=== PATIENT | female | born 1975 | race Caucasian/White ===

== ENCOUNTER → 2017-05-10 | Outpatient (CLI) | payer BC ==
[~2017-05-10] MED LIST: PORTTAB PO
--- NOTE | 2017-05-10 13:42 | REPMRS ---
Patient History The patient states she had a clinical breast exam in 04/2017. No known family history of cancer. Taking hormonal contraceptives for 11 years. Digital Woman Screen Mammo: May 10, 2017 - Exam #: [id number] Bilateral CC and MLO view(s) were taken. Technologist: Jeimy Connell, Technologist Prior study comparison: March 10, 2016, digital woman screen mammo performed at [facility]. FINDINGS: There are scattered fibroglandular densities. There has been no change in the appearance of the mammogram from the prior studies. There is a mild amount of scattered fibroglandular density which is fairly symmetric. There is no interval development of dominant mass, architectural distortion, or clustered microcalcification suggestive of malignancy. ASSESSMENT: BI-RADS/ACR category 1 mammogram. Negative. Recommendation Routine screening mammogram in 1 year (for women over age 40). This mammogram was interpreted with the aid of an FDA-approved computer-aided dectection system. Electronically Signed By: Handy Easley MD 05/10/17 [id number]
== END ==
LOC: M WHC 10:28
PROVIDERS: ATTEND Nurse Practitioner Family
DX: Z12.31 Encounter for screening mammogram for malignant neoplasm of breast (principal)

== ENCOUNTER → 2017-05-10 | Outpatient (REF) | payer BC | LOC: M SFHCWAGY 11:17 | PROVIDERS: ATTEND Nurse Practitioner Family | DX: Z12.4 Encounter for screening for malignant neoplasm of cervix (principal) ==

== ENCOUNTER → 2017-05-29 | Outpatient (CLI) | payer BC, MEDICARE ==
--- NOTE | 2017-05-29 11:41 | REP ---
PELVIC ULTRASOUND: Real-time sonographic evaluation of the pelvis is performed utilizing transabdominal and endovaginal technique. The urinary bladder measures 7.2 x 9.2 x 4.1 cm. The uterus measures 10.3 x 4.5 x 4.5 cm. Endometrial thickness is 4 mm. There is no endometrial fluid collection. The ovaries appear normal in size and echotexture, right ovary measuring 2.2 x 0.7 x 2.8 cm and left ovary 1.9 x 0.6 x 1.5 cm. There is adnexal mass. There is no evidence of ovarian torsion, with blood flow seen in each ovary with duplex Doppler evaluation, RI right ovary 0.58 and left ovary 0.50. Small amount of free fluid may be physiologic in nature. IMPRESSION: Essentially negative pelvic ultrasound.
== END ==
LOC: M WHC 08:58
PROVIDERS: ATTEND Nurse Practitioner Family
DX: R10.32 Left lower quadrant pain (principal)

== ENCOUNTER → 2018-08-16 | Outpatient (CLI) | payer OTHER ==
--- NOTE | 2018-08-16 11:18 | REPMRS ---
Patient History The patient states she had a clinical breast exam in 07/2018. No known family history of cancer. Taking hormonal contraceptives for 12 years 3 months. Digital Woman Screen Mammo: August 16, 2018 - Exam #: [id number] Bilateral CC and MLO view(s) were taken. Technologist: Jeimy Connell, Technologist Prior study comparison: May 10, 2017, digital woman screen mammo performed at [facility]. March 10, 2016, digital woman screen mammo performed at [facility]. FINDINGS: There are scattered fibroglandular densities. There has been no change in the appearance of the mammogram from the prior studies. There is a mild amount of scattered fibroglandular density which is fairly symmetric. There is no interval development of dominant mass, architectural distortion, or clustered microcalcification suggestive of malignancy. 3-D tomosynthesis shows no additional findings. Assessment: BI-RADS/ACR category 1 mammogram. Negative. Recommendation Routine screening mammogram of both breasts in 1 year (for women over age 40). This patient's Lifetime Breast Cancer RIsk is estimated at 10.1 %. This mammogram was interpreted with the aid of an FDA-approved computer-aided dectection system. Electronically Signed By: Handy Easley MD 08/16/18 [id number]
== END ==
LOC: M WHC 08:59
PROVIDERS: ATTEND Nurse Practitioner Family
DX: Z12.31 Encounter for screening mammogram for malignant neoplasm of breast (principal)

== ENCOUNTER → 2019-09-23 | Outpatient (CLI) | payer BC, OTHER ==
--- NOTE | 2019-09-23 12:41 | REP ---
BILATERAL SCREENING DIGITAL MAMMOGRAM WITH 3D TOMOSYNTHESIS: There are no palpable abnormalities or other breast complaints. The the patient states she had a clinical breast examination January, The [facility]rer-Cuzick Lifetime Breast Cancer Risk Score is: 9.9% . Comparison is the 06/19/2016 There are scattered areas of fibroglandular density. There is no dominant mass, micro calcific cluster or architectural distortion that would indicate malignancy. There are no additional findings on 3D tomosynthesiss. There is no change from the prior study. Impression: BIRADS/ACR category 1 mammogram. Negative. Recommendation: Routine annual screening mammography. This mammogram was interpreted with the aid of a FDA approved computer-aided detection system. A. Negative mammogram reports should not delay biopsy if a dominant or clinically suspicious mass is present. B. Not all breast cancers are identified by mammography or tomosynthesis. C. Adenosis and dense breasts may obscure an underlying neoplasm. Patient letter M1. Electronically Signed by Ramiro Ley MD 09/23/2019 12:33 P
== END ==
LOC: M WHC 10:32
PROVIDERS: ATTEND Nurse Practitioner Family
DX: Z12.31 Encounter for screening mammogram for malignant neoplasm of breast (principal)

== ENCOUNTER → 2020-04-08 | Outpatient (CLI) | payer BC ==
[2020-04-08 11:39] LABS: BASO % 0.5 % (0.0-1.0); EOS # 0.1 10^3/uL (0.0-0.5); EOS % 1.1 % (0.0-3.0); HEMATOCRIT 35.3 % (36.0-47.0); HEMOGLOBIN 10.6 g/dl (12.0-15.5); LYMPH # 2.3 10^3/uL (1.5-5.0); LYMPH % 35.6 % (24.0-44.0); MEAN CORPUSCULAR HEMOGLOBIN 22.9 pg (27.0-33.0); MEAN CORPUSCULAR VOLUME 76.4 fl (80.0-96.0); MONO # 0.6 10^3/uL (0.0-0.8); NEUTROPHILS # 3.4 10^3/uL (1.5-8.5); NEUTROPHILS % 52.5 % (36.0-66.0); PLATELET COUNT, AUTOMATED 425 10^3/uL (150-450); RED BLOOD COUNT 4.62 10^6/uL (4.00-5.40); WHITE BLOOD COUNT 6.4 10^3/uL (4.0-10.0)
[2020-04-08 12:13] LABS: ALBUMIN 3.2 GM/DL (3.2-5.2); ALT/SGPT 39 U/L (12-78); BILIRUBIN,TOTAL 0.2 MG/DL (0.2-1.0); BLOOD UREA NITROGEN 9 MG/DL (7-18); CALCIUM LEVEL 8.8 MG/DL (8.5-10.1); CARBON DIOXIDE LEVEL 24 MEQ/L (21-32); CHLORIDE LEVEL 109 MEQ/L (98-107); CREATININE FOR GFR 0.69 MG/DL (0.55-1.30); FERRITIN < 3 NG/ML (8-252); GLOMERULAR FILTRATION RATE > 60.0 (>58); GLUCOSE, FASTING 94 MG/DL (70-100); IRON (FE) 36 UG/DL (50-170); PERCENT SATURATION 5.8 % (13.2-45.0); POTASSIUM SERUM 4.8 MEQ/L (3.5-5.1); SODIUM LEVEL 136 MEQ/L (136-145); TOTAL IRON BINDING CAPACITY 618 UG/DL (250-450); TOTAL PROTEIN 7.8 GM/DL (6.4-8.2)
[2020-04-08 13:04] LABS: FOLATE > 24.0 NG/ML; TOTAL 25(OH) VITAMIN D 20.4 NG/ML (30.0-100.0); VITAMIN B12 LEVEL 185 PG/ML
== END ==
LOC: M WUC 10:01
PROVIDERS: ATTEND Nurse Practitioner Family
DX: R53.83 Other fatigue (principal)

== ENCOUNTER → 2020-08-07 | Outpatient (CLI) | payer BC ==
[2020-08-07 14:00] LABS: HEMOGLOBIN 13.5 g/dl (12.0-15.5); MEAN CORPUSCULAR HEMOGLOBIN 29.1 pg (27.0-33.0); MEAN CORPUSCULAR HGB CONC 32.1 g/dl (32.0-36.5); MEAN CORPUSCULAR VOLUME 90.5 fl (80.0-96.0); PLATELET COUNT, AUTOMATED 235 10^3/uL (150-450); RED BLOOD COUNT 4.64 10^6/uL (4.00-5.40); WHITE BLOOD COUNT 6.2 10^3/uL (4.0-10.0)
[2020-08-07 14:48] LABS: ALBUMIN 3.5 GM/DL (3.2-5.2); ALT/SGPT 34 U/L (12-78); BILIRUBIN,TOTAL 0.5 MG/DL (0.2-1.0); BLOOD UREA NITROGEN 10 MG/DL (7-18); CALCIUM LEVEL 9.1 MG/DL (8.5-10.1); CARBON DIOXIDE LEVEL 27 MEQ/L (21-32); CHLORIDE LEVEL 106 MEQ/L (98-107); CHOLESTEROL LEVEL 238 MG/DL (<200); CHOLESTEROL RISK RATIO 2.735 (<5); CREATININE FOR GFR 0.72 MG/DL (0.55-1.30); FERRITIN 21 NG/ML (8-252); FOLLICLE STIMULATING HORMONE 20.6 mIU/mL; GLOMERULAR FILTRATION RATE > 60.0 (>58); GLUCOSE, FASTING 86 MG/DL (70-100); HDL CHOLESTEROL 87 MG/DL (>40); IRON (FE) 102 UG/DL (50-170); LDL CHOLESTEROL 130 MG/DL (<100); LUTEINIZING HORMONE 3.5 mIU/mL; NON-HDL-C 151 MG/DL; PERCENT SATURATION 22.2 % (13.2-45.0); POTASSIUM SERUM 4.5 MEQ/L (3.5-5.1); SODIUM LEVEL 138 MEQ/L (136-145); TOTAL 25(OH) VITAMIN D 60.4 NG/ML (30.0-100.0); TOTAL IRON BINDING CAPACITY 460 UG/DL (250-450); TOTAL PROTEIN 7.4 GM/DL (6.4-8.2); TRIGLYCERIDES LEVEL 104 MG/DL (<150)
== END ==
LOC: M WUC 09:51
PROVIDERS: ATTEND Physician Assistant
DX: D50.0 Iron deficiency anemia secondary to blood loss (chronic) (principal); E55.9 Vitamin D deficiency, unspecified; R79.89 Other specified abnormal findings of blood chemistry; Z00.00 Encounter for general adult medical examination without abnormal findings; N92.0 Excessive and frequent menstruation with regular cycle

== ENCOUNTER → 2020-10-08 | Outpatient (REF) | payer BC | LOC: M SFHCWAGY 13:07 | PROVIDERS: ATTEND Nurse Practitioner Family | DX: Z12.4 Encounter for screening for malignant neoplasm of cervix (principal) ==

== ENCOUNTER → 2020-10-08 | Outpatient (CLI) | payer BC ==
--- NOTE | 2020-10-08 12:23 | REPMRS ---
Patient History The patient states she had a clinical breast exam in 09/2020 No known family history of cancer. Taking hormonal contraceptives for 13 years 3 months. Digital Woman Screen Mammo: October 08, 2020 - Exam #: [id number] Bilateral CC and MLO view(s) were taken. Technologist: Gloria Womack, Technologist Prior study comparison: September 23, 2019, bilateral digital woman screen mammo performed at [facility]. August 16, 2018, bilateral digital woman screen mammo performed at [facility]. May 10, 2017, digital woman screen mammo performed at [facility]. FINDINGS: The breast tissue is almost entirely fat. The [facility] volumetric breast density category is: A. There has been no change in the appearance of the mammogram from the prior studies. There is no interval development of dominant mass, architectural distortion, or grouped microcalcification typical of malignancy. 3-D tomosynthesis shows no additional findings. Assessment: BI-RADS/ACR category 1 mammogram. Negative Mammogram. Recommendation Routine screening mammogram of both breasts in 1 year (for women over age 40). This patient's [facility] Lifetime Breast Cancer RIsk is estimated at 9.8 %. This mammogram was interpreted with the aid of an FDA-approved computer-aided dectection system. Electronically Signed By: Handy Easley MD 10/08/20 [id number]
== END ==
LOC: M WHC 09:20
PROVIDERS: ATTEND Nurse Practitioner Family
DX: Z12.31 Encounter for screening mammogram for malignant neoplasm of breast (principal); Z79.3 Long term (current) use of hormonal contraceptives

== ENCOUNTER → 2020-11-09 | Outpatient (CLI) | payer BC | LOC: M WHC 09:38 | PROVIDERS: ATTEND Obstetrics & Gynecology | DX: N92.0 Excessive and frequent menstruation with regular cycle (principal); Z53.9 Procedure and treatment not carried out, unspecified reason ==

== ENCOUNTER → 2020-12-02 | Outpatient (REF) | payer BC | LOC: M PLALAB 15:54 | PROVIDERS: ATTEND Obstetrics & Gynecology | DX: N92.0 Excessive and frequent menstruation with regular cycle (principal) ==

== ENCOUNTER → 2020-12-16 | Outpatient (CLI) | payer BC ==
--- NOTE | 2020-12-16 10:03 | REP ---
INDICATION: N92.0 MENORRHAGIA COMPARISON: 05/29/2017 TECHNIQUE: Transabdominal pelvic ultrasound followed by transvaginal examination for better evaluation of the endometrium and adnexa with color Doppler evaluation of the ovaries. FINDINGS: Bladder is unremarkable and measures 8.3 x 5.5 x 7.2 cm. Heterogeneous retroflexed uterus measures 8.6 x 4.2 x 5.0 cm. The endometrial complex measures 2.0 mm thickness. 2.0 x 1.1 x 1.0 cm anterior submucosal fibroid identified. Bilateral ovaries are not visualized by either transabdominal or transvaginal imaging. No pelvic fluid or adnexal mass lesion. IMPRESSION: Heterogeneous uterus with 2 cm submucosal fibroid. <Electronically signed by José Miguel Liu > 12/16/20 1000
== END ==
LOC: M WHC 06:44
PROVIDERS: ATTEND Obstetrics & Gynecology
DX: N92.0 Excessive and frequent menstruation with regular cycle (principal); D25.0 Submucous leiomyoma of uterus

== ENCOUNTER → 2021-02-11 | Outpatient (CLI) | payer BC ==
--- NOTE | 2021-02-12 01:19 | REP ---
INDICATION: ACUTE BILATERAL LOW BACK PAIN W/O SCIATICA COMPARISON: None. TECHNIQUE: AP, lateral, bilateral oblique, and coned-down views of the lumbar spine. FINDINGS: Alignment and lordosis maintained. Vertebral bodies are intact. No acute fracture/compression injury or subluxation. Disc spaces are relatively normal/age-appropriate. No obvious spondylolysis or spondylolisthesis. IMPRESSION: Normal age-appropriate lumbosacral Spine series. <Electronically signed by José Miguel Liu > 02/12/21 0115
== END ==
LOC: M ADAMS 13:46
PROVIDERS: ATTEND Physician Assistant Medical
DX: M54.5 Low back pain (principal)

== ENCOUNTER → 2021-08-06 | Outpatient (CLI) | payer BC | LOC: M LABSMTC 11:25 | PROVIDERS: ATTEND Pediatrics | DX: Z20.822 Contact with and (suspected) exposure to COVID-19 (principal) | CPT/HCPCS: C9803; U0003 ==

== ENCOUNTER 2021-10-22 16:19 | Emergency (ER) | payer OTHER, BC ==
[~2021-10-22] VITALS: Ht 170.2 cm; Wt 77.3 kg
[2021-10-22 19:04] VITALS: BP 152/84
== END 2021-10-22 19:19 | disposition home or self-care (01) ==
LOC: M ED 16:19
DX: S93.402A Sprain of unspecified ligament of left ankle, initial encounter (principal); X50.1XXA Overexertion from prolonged static or awkward postures, initial encounter; Y92.89 Other specified places as the place of occurrence of the external cause; Y93.9 Activity, unspecified; Y99.0 Civilian activity done for income or pay; Z79.899 Other long term (current) drug therapy

== ENCOUNTER → 2021-12-02 | Outpatient (CLI) | payer OTHER ==
[~2021-12-02] MED LIST changes: +DROS3TAB PO; +IRON65TA2 PO; +VITA100093 PO; +VITMTA PO
== END ==
LOC: M SOG 08:30
PROVIDERS: ATTEND Physician Assistant
DX: M20.012 Mallet finger of left finger(s) (principal)

== ENCOUNTER → 2022-01-05 | Outpatient (CLI) | payer BC | LOC: M WHC 08:53 | PROVIDERS: ATTEND Advanced Practice Midwife | DX: Z12.31 Encounter for screening mammogram for malignant neoplasm of breast (principal) ==

== ENCOUNTER 2023-07-15 10:33 | Emergency (ER) | payer BC, OTHER ==
[~2023-07-15] VITALS: Ht 170.2 cm; Wt 71.2 kg
[2023-07-15 10:34] VITALS: BP 127/76; TEMP 98.4; O2SAT 100
== END 2023-07-15 12:20 | disposition home or self-care (01) ==
LOC: M ED 10:33
DX: M25.571 Pain in right ankle and joints of right foot (principal); X50.0XXA Overexertion from strenuous movement or load, initial encounter; F10.10 Alcohol abuse, uncomplicated; Y92.9 Unspecified place or not applicable; Y93.89 Activity, other specified; Y99.0 Civilian activity done for income or pay; Z79.810 Long term (current) use of selective estrogen receptor modulators (SERMs); Z79.899 Other long term (current) drug therapy

== ENCOUNTER → 2024-01-03 | Outpatient (CLI) | payer BC | LOC: M WHC 10:05 | PROVIDERS: ATTEND Advanced Practice Midwife | DX: Z12.31 Encounter for screening mammogram for malignant neoplasm of breast (principal) ==

== ENCOUNTER → 2024-01-03 | Outpatient (REF) | payer OTHER ==
[2024-01-05 13:57] LABS: HPV APTIMA Not Detected (Not Detected)
== END ==
LOC: M PLALAB 10:20
PROVIDERS: ATTEND Advanced Practice Midwife
DX: Z01.419 Encounter for gynecological examination (general) (routine) without abnormal findings (principal); Z11.51 Encounter for screening for human papillomavirus (HPV)
CPT/HCPCS: 87624; G0123

== ENCOUNTER → 2024-08-07 | Outpatient (CLI) | payer OTHER ==
[2024-08-07 13:58] LABS: BASO % 0.5 % (0.0-1.0); EOS # 0.2 10^3/uL (0.0-0.5); EOS % 1.9 % (0.0-3.0); HEMATOCRIT 40.6 % (36.0-47.0); IRON (FE) 176 UG/DL (50-170); LYMPH # 2.5 10^3/uL (1.5-5.0); LYMPH % 30.4 % (24.0-44.0); MEAN CORPUSCULAR HEMOGLOBIN 28.5 pg (27.0-33.0); MONO # 0.6 10^3/uL (0.0-0.8); MONO % 7.2 % (2.0-8.0); NEUTROPHILS # 4.8 10^3/uL (1.5-8.5); NEUTROPHILS % 59.8 % (36.0-66.0); PLATELET COUNT, AUTOMATED 363 10^3/uL (150-450); RED BLOOD COUNT 4.56 10^6/uL (4.00-5.40); WHITE BLOOD COUNT 8.1 10^3/uL (4.0-10.0)
[2024-08-07 13:59] LABS: ALBUMIN 3.5 G/DL (3.2-5.2); ALKALINE PHOSPHATASE 95 U/L (35-104); ALT/SGPT 31 U/L (7.0-40); AST/SGOT 20 U/L (<34); BILIRUBIN,TOTAL 0.7 MG/DL (0.3-1.2); BLOOD UREA NITROGEN 12 MG/DL (9-23); CALCIUM LEVEL 9.4 MG/DL (8.5-10.1); CARBON DIOXIDE LEVEL 25 MMOL/L (20-31); CHLORIDE LEVEL 108 MMOL/L (98-107); CHOLESTEROL LEVEL 200 MG/DL (<200); CHOLESTEROL RISK RATIO 2.51 (<5); CREATININE FOR GFR 0.65 MG/DL (0.55-1.30); GLOMERULAR FILTRATION RATE > 60.0 (>58); GLUCOSE, FASTING 87 MG/DL (60-100); HDL CHOLESTEROL 79.4 MG/DL (>40); LDL CHOLESTEROL 98.6 MG/DL (<100); NON-HDL-C 120.6 MG/DL; PERCENT SATURATION 37.6 % (13.2-45.0); POTASSIUM SERUM 4.6 MMOL/L (3.5-5.1); SODIUM LEVEL 140 MMOL/L (136-145); TOTAL IRON BINDING CAPACITY 468 UG/DL (250-425); TOTAL PROTEIN 7.7 G/DL (5.7-8.2); TRIGLYCERIDES LEVEL 110 MG/DL (<150)
[2024-08-07 14:02] LABS: THYROID STIMULATING HORMONE 2.266 uIU/ML (0.55-4.78)
[2024-08-07 14:03] LABS: FERRITIN 8.6 NG/ML (7.3-270.7); FREE T4 1.02 NG/DL (0.89-1.76)
== END ==
LOC: M PLALAB 10:56
PROVIDERS: ATTEND Student in an Organized Health Care Education/Training Program
DX: E03.9 Hypothyroidism, unspecified (principal); Z76.89 Persons encountering health services in other specified circumstances; D50.0 Iron deficiency anemia secondary to blood loss (chronic); Z13.220 Encounter for screening for lipoid disorders; E55.9 Vitamin D deficiency, unspecified

== ENCOUNTER → 2024-12-03 | Outpatient (CLI) | payer OTHER | LOC: M RAD 09:02 | PROVIDERS: ATTEND Obstetrics & Gynecology | DX: N93.9 Abnormal uterine and vaginal bleeding, unspecified (principal); R93.89 Abnormal findings on diagnostic imaging of other specified body structures ==

== ENCOUNTER 2025-02-07 12:43 | Emergency (ER) | payer OTHER ==
[~2025-02-07] VITALS: Ht 172.7 cm; Wt 73.5 kg
[2025-02-07] MEDS ORDERED: YASM3TAB2 PO (13:22)
[2025-02-07] MEDS ORDERED: ESTR0.1C5 VG (13:22)
[2025-02-07] MEDS ORDERED: NOXI1TAB PO (13:22)
[2025-02-07 14:47] LABS: BASO # 0.1 10^3/uL (0.0-0.2); BASO % 0.5 % (0.0-1.0); EOS # 0.3 10^3/uL (0.0-0.5); EOS % 2.4 % (0.0-3.0); LYMPH # 2.4 10^3/uL (1.5-5.0); LYMPH % 23.2 % (24.0-44.0); MONO # 0.9 10^3/uL (0.0-0.8); MONO % 8.6 % (2.0-8.0); NEUTROPHILS # 6.7 10^3/uL (1.5-8.5); NEUTROPHILS % 64.9 % (36.0-66.0); PLATELET COUNT, AUTOMATED 358 10^3/uL (150-450)
[2025-02-07] MEDS ORDERED: ISOVUE-370 76% 100 ML VIAL As Ordered ONE (14:55)
[2025-02-07 15:19] LABS: ALT/SGPT 32 U/L (7.0-40); AST/SGOT 28 U/L (<34); CALCIUM LEVEL 8.9 MG/DL (8.5-10.1); CARBON DIOXIDE LEVEL 23 MMOL/L (20-31); CHLORIDE LEVEL 105 MMOL/L (98-107); CREATININE FOR GFR 0.74 MG/DL (0.55-1.30); GLOMERULAR FILTRATION RATE > 90.0 (>51); POTASSIUM SERUM 4.4 MMOL/L (3.5-5.1); SODIUM LEVEL 141 MMOL/L (136-145)
[2025-02-07] MEDS ORDERED: THERTAB52 PO (16:16)
[2025-02-07] MEDS ORDERED: HOME MED LIST COMPLETE! XX SCH (16:20)
[2025-02-07 16:38] LABS: APPEARANCE, URINE CLEAR (CLEAR); BACTERIA, URINE AUTO NEGATIVE (NEGATIVE); BILIRUBIN, URINE AUTO NEGATIVE (NEGATIVE); BLOOD, URINE BLOOD NEGATIVE (NEGATIVE); GLUCOSE, URINE (UA) AUTO NEGATIVE (NEGATIVE); KETONE, URINE AUTO 1+ mg/dL (NEGATIVE); LEUKOCYTE ESTERASE, URINE AUTO NEGATIVE (NEGATIVE); MUCUS, URINE SMALL (NEGATIVE); NITRITE, URINE AUTO NEGATIVE (NEGATIVE); PROTEIN, URINE AUTO NEGATIVE (NEGATIVE); RBC, URINE AUTO 2 /HPF (0-3); SQUAMOUS EPITHELIAL CELL UR AU 1 /HPF (0-6); UROBILINOGEN, URINE AUTO 0.2 mg/dL (0.0-2.0); WBC, URINE AUTO 1 /HPF (0-3)
[2025-02-07 16:42] LABS: SPECIFIC GRAVITY URINE AUTO >1.060 (1.002-1.035)
[2025-02-07] MEDS ORDERED: AMOX875T2 PO (17:51)
[2025-02-07] MEDS ORDERED: ANUS25SU PR (17:54)
[2025-02-07 18:05] VITALS: BP 128/72; TEMP 96.4; O2SAT 98
== END 2025-02-07 18:14 | disposition home or self-care (01) ==
LOC: M ED 12:43
DX: K64.8 Other hemorrhoids (principal); K52.9 Noninfective gastroenteritis and colitis, unspecified; Z79.2 Long term (current) use of antibiotics; Z79.899 Other long term (current) drug therapy; Z79.810 Long term (current) use of selective estrogen receptor modulators (SERMs)
CPT/HCPCS: 36415; 74177; 80048; 80076; 81001; 83690; 84702; 85025; 86850; 86900; 86901; 99284; Q9967

== ENCOUNTER → 2025-02-20 | Outpatient (REF) | payer OTHER ==
[~2025-02-20] MED LIST changes: +AMOX875T2 PO; +ANUS25SU PR; +ESTR0.1C5 VG; +NOXI1TAB PO; +THERTAB52 PO; +YASM3TAB2 PO
[2025-02-20 14:55] LABS: APPEARANCE, URINE CLEAR (CLEAR); BACTERIA, URINE AUTO NEGATIVE (NEGATIVE); BILIRUBIN, URINE AUTO NEGATIVE (NEGATIVE); BLOOD, URINE BLOOD 2+ (NEGATIVE); GLUCOSE, URINE (UA) AUTO NEGATIVE (NEGATIVE); KETONE, URINE AUTO NEGATIVE (NEGATIVE); LEUKOCYTE ESTERASE, URINE AUTO NEGATIVE (NEGATIVE); MUCUS, URINE SMALL (NEGATIVE); NITRITE, URINE AUTO NEGATIVE (NEGATIVE); PROTEIN, URINE AUTO NEGATIVE (NEGATIVE); RBC, URINE AUTO 0 /HPF (0-3); SPECIFIC GRAVITY URINE AUTO 1.008 (1.002-1.035); SQUAMOUS EPITHELIAL CELL UR AU 0 /HPF (0-6); UROBILINOGEN, URINE AUTO 0.2 mg/dL (0.0-2.0); WBC, URINE AUTO 0 /HPF (0-3)
== END ==
LOC: M SFHCPLAZ 10:23
PROVIDERS: ATTEND Nurse Practitioner Family
DX: R39.9 Unspecified symptoms and signs involving the genitourinary system (principal)

== ENCOUNTER → 2025-02-20 | Outpatient (CLI) | payer OTHER ==
[2025-02-20 13:16] LABS: PLATELET COUNT, AUTOMATED 450 10^3/uL (150-450)
[2025-02-20 13:45] LABS: ALT/SGPT 34 U/L (7.0-40); AST/SGOT 29 U/L (<34); C REACTIVE PROTEIN QUANTITATIV 0.80 MG/DL (<1.0); CALCIUM LEVEL 9.1 MG/DL (8.5-10.1); CARBON DIOXIDE LEVEL 21 MMOL/L (20-31); CHLORIDE LEVEL 102 MMOL/L (98-107); CREATININE FOR GFR 0.72 MG/DL (0.55-1.30); GLOMERULAR FILTRATION RATE > 90.0 (>51); POTASSIUM SERUM 3.9 MMOL/L (3.5-5.1); SODIUM LEVEL 136 MMOL/L (136-145)
[2025-02-20 13:51] LABS: ATYPICAL LYMPH 2 % (0-5); BASOPHILS 1 % (0-1); EOSINOPHILS 3 % (0-3); LYMPHOCYTES 29 % (16-44); MONOCYTES 7 % (0-5); NEUTROPHILS 58 % (28-66)
[2025-02-20 13:52] LABS: PLATELET ESTIMATE NORMAL (NORMAL)
== END ==
LOC: M PLALAB 10:56
PROVIDERS: ATTEND Nurse Practitioner Family
DX: K52.9 Noninfective gastroenteritis and colitis, unspecified (principal)

== ENCOUNTER → 2025-02-28 | Outpatient (CLI) | payer OTHER | LOC: M WHC 10:15 | PROVIDERS: ATTEND Advanced Practice Midwife | DX: Z12.31 Encounter for screening mammogram for malignant neoplasm of breast (principal); R92.313 Mammographic fatty tissue density, bilateral breasts ==

== ENCOUNTER 2025-03-22 08:11 | Emergency (ER) | payer OTHER ==
[~2025-03-22] VITALS: Ht 175.3 cm; Wt 71.8 kg
[2025-03-22] MEDS ORDERED: HYDR-3363 (08:37)
[2025-03-22] MEDS ORDERED: ANUC25SU (08:37)
[2025-03-22] MEDS ORDERED: BUDE3CAP (08:37)
[2025-03-22] MEDS ORDERED: PHEN26CR PR (08:37)
[2025-03-22] MEDS ORDERED: PROBCAP14 PO (08:37)
[2025-03-22] MEDS ORDERED: HYDR26CR TOP (08:37)
[2025-03-22] MEDS: KETOROLAC 30 MG/ML 1 ML VIAL IV ONE (10:24)
[2025-03-22 11:25] LABS: KETONE, URINE AUTO RFX NEGATIVE (NEGATIVE); LEUKOCYTE ESTERASE UR AUTO RFX NEGATIVE (NEGATIVE); NITRITE, URINE AUTO RFX NEGATIVE (NEGATIVE); RBC, URINE AUTO RFX 2 /HPF (0-3); SQUAM EPITHELIAL CELL UR AURFX 0 /HPF (0-6); WBC, URINE AUTO RFX 1 /HPF (0-3)
[2025-03-22 11:31] LABS: BASO # 0.0 10^3/uL (0.0-0.2); BASO % 0.4 % (0.0-1.0); EOS # 0.2 10^3/uL (0.0-0.5); EOS % 1.5 % (0.0-3.0); LYMPH # 2.9 10^3/uL (1.5-5.0); LYMPH % 29.3 % (24.0-44.0); MONO # 1.1 10^3/uL (0.0-0.8); MONO % 10.7 % (2.0-8.0); NEUTROPHILS # 5.8 10^3/uL (1.5-8.5); NEUTROPHILS % 57.8 % (36.0-66.0); PLATELET COUNT, AUTOMATED 321 10^3/uL (150-450)
[2025-03-22] MEDS ORDERED: ISOVUE-370 76% 100 ML VIAL As Ordered ONE (11:37)
[2025-03-22 11:50] LABS: ALT/SGPT 24.0 U/L (7.0-40); AST/SGOT 21.0 U/L (<34)
[2025-03-22 13:23] VITALS: BP 117/70; TEMP 98.5; O2SAT 98
[2025-03-22] MEDS: LIDOCAINE/PRILOCAINE CREAM 5 GM TUBE TOP ONE (13:25)
[2025-03-22] MEDS ORDERED: COLA100C5 PO (13:33)
== END 2025-03-22 14:13 | disposition home or self-care (01) ==
LOC: M ED 08:11
DX: K64.9 Unspecified hemorrhoids (principal); K62.5 Hemorrhage of anus and rectum; D64.9 Anemia, unspecified; R19.5 Other fecal abnormalities; R79.9 Abnormal finding of blood chemistry, unspecified; Z87.19 Personal history of other diseases of the digestive system; Z79.3 Long term (current) use of hormonal contraceptives
CPT/HCPCS: 74177; 80047; 80076; 81001; 83690; 85025; 96374; 99284; J1885; Q9967

== ENCOUNTER → 2025-04-11 | Outpatient (REF) | payer OTHER ==
[~2025-04-11] MED LIST changes: +ANUC25SU; +BUDE3CAP; +COLA100C5 PO; +HYDR-3363; +HYDR26CR TOP; +PHEN26CR PR; +PROBCAP14 PO
== END ==
LOC: M SFHCWAGY 14:55
PROVIDERS: ATTEND Advanced Practice Midwife
DX: N39.9 Disorder of urinary system, unspecified (principal)

== ENCOUNTER → 2025-07-18 | Outpatient (CLI) | payer OTHER ==
[~2025-07-18] MED LIST changes: +DROS1TAB PO; -DROS3TAB PO
[2025-07-18 09:36] LABS: MAGNESIUM LEVEL 2.2 MG/DL (1.8-2.4)
[2025-07-18 09:42] LABS: TOTAL 25(OH) VITAMIN D 102.6 NG/ML (20.0-100.0)
== END ==
LOC: M LAB 08:37
PROVIDERS: ATTEND Physician Assistant
DX: K51.913 Ulcerative colitis, unspecified with fistula (principal)